=== PATIENT | male | born 1975 | race Caucasian/White ===

== ENCOUNTER 2020-07-27 20:25 | Emergency (ER) | payer BC ==
[~2020-07-27] VITALS: Ht 172.7 cm; Wt 78.6 kg
[2020-07-27 22:30] VITALS: TEMP 98.4
[2020-07-28 00:30] VITALS: BP 176/112; PULSE 83
== END 2020-07-28 00:30 | disposition home or self-care (01) ==
LOC: COL.ER 20:25
DX: S61.214A Laceration without foreign body of right ring finger without damage to nail, initial encounter (principal); I10 Essential (primary) hypertension; W26.8XXA Contact with other sharp object(s), not elsewhere classified, initial encounter; Y92.009 Unspecified place in unspecified non-institutional (private) residence as the place of occurrence of the external cause

== ENCOUNTER → 2021-10-03 | Outpatient (CLI) | payer BC | LOC: COL.RAD 10:46 | DX: D17.1 Benign lipomatous neoplasm of skin and subcutaneous tissue of trunk (principal) ==